=== PATIENT | male | born 1975 | race Caucasian/White ===

== ENCOUNTER 2017-07-14 16:40 | Inpatient (IN) | payer OTHER ==
[~2017-07-14] VITALS: Ht 172.7 cm; Wt 118.2 kg
[~2017-07-14 16:40] MED LIST: BENA25TA4 PO; CELE40TA PO; EFFE37.527 PO; FLON0.054; PROTPAK PO; TRAZ50TA11 PO
[2017-07-14] MEDS ORDERED: CETI10TA PO ×2 (18:04→18:21)
[2017-07-14] MEDS ORDERED: NAPR500T3 PO (18:04)
[2017-07-14] MEDS ORDERED: FLUO40CA PO ×2 (18:04→18:21)
[2017-07-14] MEDS ORDERED: FIORICET TAB PO ONE (18:15)
[2017-07-14] MEDS ORDERED: TRAZ-136 PO (18:21)
[2017-07-14] MEDS ORDERED: PANT40TA2 PO (18:21)
[2017-07-14] MEDS ORDERED: ACETAMINOPHEN TAB 650MG DOSE (2X325MG) PO PRN (18:30)
[2017-07-14] MEDS ORDERED: traZODone 50 MG TAB PO PRN (18:30)
[2017-07-14] MEDS ORDERED: MAALOX 30 ML SUSP *UDC PO PRN (18:30)
[2017-07-14] MEDS ORDERED: MOM 30ML SUSPENSION UDC PO PRN (18:30)
[2017-07-14 20:45] VITALS: BP 143/88
[2017-07-14] MEDS: NAPROXEN 250 MG TAB PO SCH (21:00)
[2017-07-15 06:00] VITALS: BP 122/56
[2017-07-15] MEDS: FLUoxetine 20 MG CAP PO SCH (08:18)
[2017-07-15] MEDS: PANTOPRAZOLE 40MG TAB (PROTONIX) PO SCH (08:18)
[2017-07-15] MEDS: CETIRIZINE (ZyrTEC) 10 MG TAB PO SCH (08:18)
[2017-07-15] MEDS: NAPROXEN 250 MG TAB PO SCH ×2 (08:18→21:25)
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
--- NOTE | 2017-07-15 09:39 | HPEPDOC ---
Medical History and Physical Date of Admission Jul 14, 2017 at 20:50 History and Physical PCP: [facility] ATTENDING: Dr. Mikey Tobias HPI: 42 yo M admitted to [facility] for major depressive disorder, being medically examined today. Transferred from [facility] 07/14/17. No acute medical complaints today. Patient states he has chronic low back pain however uses naproxen as needed and his pain has been controlled. Denies any fevers, chills, weakness, fatigue, SOUSA, CP, SOB, cough, palpitations, abdominal pain, N/V/D or changes in bowel or bladder habits. PMHx: Anxiety Depression Insomnia History of SI/ overdose GERD Allergic rhinitis Chronic low back pain PSHX: Cholecystectomy 02/18 Left knee arthroscopy Cyst removed from neck Right fifth finger fracture/or IM Salivary gland SOCHX: Resides in: [facility] Marital Status: Kids: None Employment: [employer] Tobacco use: Denies ETOH: Denies, states not in past 14 years. Illicit Drugs: Denies, states none in past 9 years. History of PCP, methamphetamine, barbiturates. IV Drug Use: Denies Tattoos done unprofessionally: Denies FAMHX: Mother: , depression, alcohol use Father: Alive, well Siblings: Alive, depression Children: none Unexpected deaths due to medical reasons: None. ROS: As noted in HPI, otherwise 11pt ROS of systems reviewed and unremarkable. PE: GEN: 42yoM, appears stated age. Well-nourished, well developed. No acute distress. Alert and oriented x 3. Pleasant, interactive. HEENT: Normocephalic, atraumatic. Pupils are equal, round, and reactive to light. Extraocular movements are intact. No nystagmus appreciated. Sclera are nonicteric. Conjunctiva without injection. Nose midline. Nasal turbinates without bogginess. EACs both patent BL. TMs both visualized and mayo with good cone of light, no bulging or erythema. No facial asymmetry. Moist mucous membranes. Dentition fair. Pharynx pink and moist, no cobblestoning. Neck supple , trachea midline. No lymphadenopathy or thyromegaly appreciated. CHEST: Regular rate and rhythm, +S1, +S2 LUNGS: Clear to auscultation bilaterally. No wheezes, rales, or rhonchi. Breathing appears symmetric and easy. Patient is speaking in full sentences. No accessory muscle use. ABD: Round, soft, non-tender, non-distended. +Bowel sounds throughout. No rebound or guarding. No costovertebral angle tenderness. EXT: Pulses 2+ bilaterally dorsalis pedis and radial. No lower extremity edema appreciated. SKIN: [place], dry, warm. Capillary refill <2sec. No rashes. NEURO: Alert and oriented x 3. Cranial nerves III-XII are intact. No focal deficits appreciated. EKG: pending. A&P: 42 yo M admitted to [facility] for major depressive disorder 1. Psych. Plan per Psychiatry. Obtain baseline EKG to assure the safety of psychiatric medications as they can prolong the QT interval. 2. Nicotine dependence. Patch available. 3. Allergic rhinitis. Continue Zyrtec 10 mg daily. 4. Follow up with PCP on discharge. 5. GERD. Continue Protonix 40 mg daily. 6. Chronic low back pain. Continue Tylenol 650 mg every 6 hours as needed. Continue naproxen 500 mg by mouth twice a day as needed. 7. Staff member Tmo present throughout exam. Vital Signs Vital Signs Date Time Temp Pulse Resp B/P (MAP) Pulse Ox O2 Delivery O2 Flow Rate FiO2 07/15/17 06:00 99.0 73 16 122/56 (78) 07/14/17 20:45 96 Room Air Laboratory Data Labs 24H labs pending Home Medications Scheduled Cetirizine HCl (Cetirizine HCl) 10 Mg Tab, 10 MG PO DAILY Fluoxetine Hcl (Fluoxetine HCl) 40 Mg Cap, 40 MG PO DAILY Pantoprazole Sodium (Pantoprazole Sodium) 40 Mg Tab, 40 MG PO DAILY Trazodone HCl (Trazodone HCl) 100 Mg Tab, 150 MG PO QHS Allergies Coded Allergies: Bee Venom (Verified Allergy, Unknown, 02/09/13) Adriana Sheridan Jul 15, 2017 09:39
[2017-07-15] MEDS: FLUTICASONE PROP 0.05% NASAL SPRAY 16 GM (FLONASE) SCH (12:00)
--- NOTE | 2017-07-15 16:58 | ECGEPIP ---
Stationary ECG Study [facility] Test Date: 2017-07-15 Pat Name: MOUSTAPHA RAWLS Department: Room: [place] [address] Gender: M Bladder Blower: ANGELIKA : 1975 Requested By: Adriana Sheridan Order Number: [id number] Reading MD: Markel Renner Measurements Intervals [place] Rate: 73 P: 29 GA: 154 QRS: 33 QRSD: 104 T: 28 QT: 389 QTc: 431 Interpretive Statements Normal sinus rhythm Delayed anterior R wave progression No significant change when compared to prior tracing of 11/22/2014 Electronically Signed On 07-15-2017 16:57:37 EDT by Markel Renner
[2017-07-15 18:00] VITALS: BP 135/75
[2017-07-16 06:42] VITALS: BP 145/71
[2017-07-16 07:22] LABS: MEAN CORPUSCULAR HEMOGLOBIN 29.2 pg (27.0-33.0); MEAN CORPUSCULAR HGB CONC 34.6 g/dl (32.0-36.5); MEAN CORPUSCULAR VOLUME 84.2 fl (80.0-96.0); RED CELL DISTRIBUTION WIDTH 13.9 % (11.5-14.5); WHITE BLOOD COUNT 8.8 K/mm3 (4.0-10.0)
[2017-07-16 07:52] LABS: ALBUMIN 3.5 GM/DL (3.2-5.2); ALBUMIN/GLOBULIN RATIO 0.95 (1.00-1.93); ALKALINE PHOSPHATASE 99 U/L (45-117); ALT/SGPT 48 U/L (12-78); ANION GAP 5 MEQ/L (8-16); AST/SGOT 18 U/L (15-37); BILIRUBIN,TOTAL 0.3 MG/DL (0.2-1.0); BLOOD UREA NITROGEN 15 MG/DL (7-18); CARBON DIOXIDE LEVEL 28 MEQ/L (21-32); CHLORIDE LEVEL 107 MEQ/L (98-107); GLOMERULAR FILTRATION RATE > 60.0 (>60); GLUCOSE, FASTING 97 MG/DL (70-105); POTASSIUM SERUM 4.4 MEQ/L (3.5-5.1); SODIUM LEVEL 140 MEQ/L (136-145); TOTAL PROTEIN 7.2 GM/DL (6.4-8.2)
[2017-07-16] MEDS: CETIRIZINE (ZyrTEC) 10 MG TAB PO SCH (08:17)
[2017-07-16] MEDS: PANTOPRAZOLE 40MG TAB (PROTONIX) PO SCH (08:17)
[2017-07-16] MEDS: FLUoxetine 20 MG CAP PO SCH (08:17)
[2017-07-16] MEDS: NAPROXEN 250 MG TAB PO SCH ×2 (08:17→20:58)
[2017-07-16] MEDS: FLUTICASONE PROP 0.05% NASAL SPRAY 16 GM (FLONASE) SCH (08:17)
[2017-07-16] MEDS ORDERED: INFLUENZA QUADRIVALENT PF VACCINE 0.5ML SYRINGE (90686) IM ONE (09:00)
[2017-07-16 18:09] VITALS: BP 136/76
[2017-07-16] MEDS: traZODone 50 MG TAB PO PRN (20:57)
--- NOTE | 2017-07-17 03:56 | MHIPN ---
DATE OF SERVICE: 07/16/2017 The patient today states "I'm feeling better." Mood is still at a 6/10 with the closer to 10 as the most depressed. He is denying suicidal ideation or homicidal ideation. Concentration is fair. Memory intact. Insight and judgment fair. MENTAL STATUS EXAMINATION: He is alert and oriented times three. Eye contact is fair. Psychomotor activity is normal. He is verbally spontaneous. There is no formal thought disorder. He says his mood is, "better." His affect is full range and appropriate. He is not psychotic, suicidal or homicidal. Concentration good. Insight and judgment fair. DIAGNOSES: Major depressive disorder, recurrent, severe, without psychosis. Unspecified anxiety disorder. Polysubstance abuse. TREATMENT PLAN: At this point, we will further observe and evaluate this patient for continued stabilization of his mood and continued resolution of suicidal, homicidal ideations. WENDI
[2017-07-17 06:42] VITALS: BP 135/67
[2017-07-17] MEDS: PANTOPRAZOLE 40MG TAB (PROTONIX) PO SCH (08:22)
[2017-07-17] MEDS: FLUTICASONE PROP 0.05% NASAL SPRAY 16 GM (FLONASE) SCH (08:22)
[2017-07-17] MEDS: CETIRIZINE (ZyrTEC) 10 MG TAB PO SCH (08:22)
[2017-07-17] MEDS: NAPROXEN 250 MG TAB PO SCH ×2 (08:22→22:02)
[2017-07-17] MEDS: FLUoxetine 20 MG CAP PO SCH (08:23)
[2017-07-17 18:10] VITALS: BP 136/63
--- NOTE | 2017-07-17 21:07 | MHIPN ---
DATE: 07/17/2017 The patient today states that he slept well with the increase of the trazodone to 150 mg and also since his mood continues to be better. MENTAL STATUS EXAMINATION: He is alert and oriented times three. Eye contact is fair. Psychomotor activity is normal. He is verbally spontaneous. There is no formal thought disorder. He says his mood is, "better." His affect is full range and appropriate. He is not psychotic, suicidal or homicidal. Concentration good. Insight and judgment fair. DIAGNOSES: Major depressive disorder, recurrent, severe, without psychosis. Unspecified anxiety disorder. Polysubstance abuse. TREATMENT PLAN: At this point, we will further observe and evaluate this patient for continued elevation and stabilization of his mood and we will monitor him for continued resolution of suicidal or homicidal ideations. WENDI
[2017-07-18 06:54] VITALS: BP 145/65
[2017-07-18] MEDS: PANTOPRAZOLE 40MG TAB (PROTONIX) PO SCH (07:46)
[2017-07-18] MEDS: NAPROXEN 250 MG TAB PO SCH ×2 (07:47→21:46)
[2017-07-18] MEDS: CETIRIZINE (ZyrTEC) 10 MG TAB PO SCH (07:47)
[2017-07-18] MEDS: FLUTICASONE PROP 0.05% NASAL SPRAY 16 GM (FLONASE) SCH (07:47)
[2017-07-18] MEDS: FLUoxetine 20 MG CAP PO SCH (07:47)
--- NOTE | 2017-07-18 16:43 | MHIPNPDOC ---
[facility] Progress Note Progress Note DATE OF SERVICE: 07/18/17 HISTORY: Patient was seen and evaluated. He reports that he has been feeling better and has been going to the groups and milieu treatment. All available in the unit and also been able to interact with others in the unit. He denies any suicidal or homicidal ideations, intentions or plans. He also reports that his depression has been under more control and indicating good as 4 out of 10 where 10 being the worst depression ever felt. He also denies any psychotic symptoms including auditory or visual hallucinations and paranoid ideations. He is compliant with medications and denies any side effects with current medications. He reports sleeping better with increased dose of trazodone and his appetite has been stable. VITAL SIGNS: See below. CURRENT MEDICATIONS: See below. 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 Major depression, recurrent, without psychosis. 2.. Anxiety disorder, unspecified. 3. Polysubstance abuse by history. ASSESSMENT: Patient improving with the current treatment. Reports less depression and anxiety. Sleeping better MANAGEMENT PLAN:, Continue current management discharge planning in progress. TIME SPENT: 15 minutes. Vital Signs Vital Signs Date Time Temp Pulse Resp B/P (MAP) Pulse Ox O2 Delivery O2 Flow Rate FiO2 07/18/17 06:54 98.5 71 16 145/65 (91) Room Air 07/14/17 20:45 96 Current Medications Current Medications Acetaminophen (Tylenol Tab) 650 mg Q6HP PRN PO HEADACHE or DISCOMFORT Last administered on 07/18/17t 12:12; Start 07/14/17 at 18:30; Stop 08/13/17 at 18:29 Al Hydrox/Mg Hydrox/Simethicone (Mylanta) 30 ml Q4HP PRN PO HEARTBURN/ INDIGESTION; Start 07/14/17 at 18:30; Stop 08/13/17 at 18:29 Cetirizine HCl (ZyrTEC) 10 mg DAILY PO Last administered on 07/18/17 07:47; Start 07/15/17 at 09:00; Stop 08/14/17 at 08:59 Fluoxetine HCl (PROzac) 40 mg DAILY PO Last administered on 07/18/17 07:47; Start 07/15/17 at 09:00; Stop 08/14/17 at 08:59 Fluticasone Propionate (Flonase 0.05% Nasal [place]) 2 spray DAILY NA Last administered on 07/18/17 07:47; Start 07/15/17 at 09:00; Stop 08/14/17 at 08:59 Home Med (Med Rec Complete!) ASDIRECTED XX ; Start 07/14/17 at 18:30; Stop at 18:30; Status DC Magnesium Hydroxide (Milk Of Magnesia) 30 ml DAILYPRN PRN PO CONSTIPATION; Start 07/14/17 at 18:30; Stop 08/13/17 at 18:29 Naproxen (Naprosyn) 500 mg BID PO Last administered on 07/18/17 07:47; Start 07/14/17 at 21:00; Stop 08/13/17 at 20:59 Pantoprazole Sodium (Protonix) 40 mg DAILY PO Last administered on 07/18/17 07 :46; Start 07/15/17 at 09:00; Stop 08/14/17 at 08:59 Trazodone HCl (Desyrel) 50 mg QHSP PRN PO INSOMNIA Last administered on 21:25; Start 07/14/17 at 18:30; Stop 07/16/17 at 14:35; Status DC Trazodone HCl (Desyrel) 150 mg QHSP PRN PO INSOMNIA Last administered on 20:57; Start 07/16/17 at 14:45; Stop 08/15/17 at 14:44 Allergies Coded Allergies: Bee Venom (Verified Allergy, Unknown, 02/09/13) OLVIN ARIAS MD Jul 18, 2017 16:43
[2017-07-18 18:00] VITALS: BP 137/65
[2017-07-18] MEDS: traZODone 50 MG TAB PO PRN (21:46)
[2017-07-19 06:41] VITALS: BP 146/77
[2017-07-19] MEDS: PANTOPRAZOLE 40MG TAB (PROTONIX) PO SCH (08:09)
[2017-07-19] MEDS: CETIRIZINE (ZyrTEC) 10 MG TAB PO SCH (08:10)
[2017-07-19] MEDS: FLUoxetine 20 MG CAP PO SCH (08:10)
[2017-07-19] MEDS: NAPROXEN 250 MG TAB PO SCH (08:10)
[2017-07-19] MEDS: FLUTICASONE PROP 0.05% NASAL SPRAY 16 GM (FLONASE) SCH (08:10)
[2017-07-19] MEDS ORDERED: TRAZ1TAB14 PO (09:59)
[2017-07-19] MEDS ORDERED: FLUO40CA PO (09:59)
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
== END 2017-07-19 12:55 | disposition home or self-care (01) | DRG 751 ==
LOC: M ED 16:40 → M PSY 20:50
PROVIDERS: ADMIT Psychiatry & Neurology Psychiatry; ATTEND Psychiatry & Neurology Psychiatry
DX: F33.2 Major depressive disorder, recurrent severe without psychotic features (principal); F10.10 Alcohol abuse, uncomplicated; Z79.899 Other long term (current) drug therapy; Z91.030 Bee allergy status; Z90.49 Acquired absence of other specified parts of digestive tract; K21.9 Gastro-esophageal reflux disease without esophagitis; M54.5 Low back pain; J30.9 Allergic rhinitis, unspecified

== ENCOUNTER → 2019-01-17 | Outpatient (REF) ==
[~2019-01-17] MED LIST changes: +CETI10TA PO; +EFFE37.5 PO; -EFFE37.527 PO; +FLUO40CA PO; +NAPR-885 PO; +PANT40TA3 PO; +TRAZ-160 PO; +TRAZ-163 PO; +TRAZ1TAB14 PO; -TRAZ50TA11 PO
--- NOTE | 2019-01-18 03:25 | REP ---
Clinical: Back pain and disability. Technique: AP, lateral, and coned-down views. Findings: Alignment is maintained. The vertebral bodies including transverse process and spinous processes are intact and normal. There is no evidence for acute fracture / compression injury or subluxation. No evidence for spondylolysis or spondylolisthesis. No significant degenerative change is noted. Impression: Age-appropriate lumbosacral spine series. If the patient remains symptomatic consider MRI for further investigation. Electronically Signed by Cameron Quigley MD 01/18/2019 03:17 A
== END ==
LOC: M SMT 11:27
PROVIDERS: ATTEND Internal Medicine
DX: Z02.71 Encounter for disability determination (principal)

== ENCOUNTER → 2024-03-21 | Outpatient (REF) ==
[~2024-03-21] MED LIST changes: -EFFE37.5 PO; +EFFE37.52 PO; +PANT40TA29 PO; -PANT40TA3 PO; -TRAZ-160 PO; -TRAZ-163 PO; +TRAZ-252 PO; +TRAZ-257 PO
== END ==
LOC: M PLAIMG 14:05
PROVIDERS: ATTEND Internal Medicine
DX: M54.50 Low back pain, unspecified (principal); M25.511 Pain in right shoulder

== ENCOUNTER → 2025-02-08 | Outpatient (REF) | LOC: M PLAIMG 10:05 | PROVIDERS: ATTEND Internal Medicine | DX: M54.2 Cervicalgia (principal) ==